=== PATIENT | male | born 1995 | race Caucasian/White ===

== ENCOUNTER 2019-03-26 23:04 | Emergency (ER) | payer OTHER ==
[2019-03-26 23:13] VITALS: RESP 18; TEMP 98.5
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
[2019-03-26] MEDS ORDERED: DIPH,PERTUS(ACELL)TETVAC-LF 0.5 ML VIAL IM ONE (23:34)
--- NOTE | 2019-03-26 23:56 | XR ---
EXAM: XR Right Forearm, 2 Views CLINICAL HISTORY: ITS.REASON XR Reason: Pain TECHNIQUE: Frontal and lateral views of the right forearm. COMPARISON: No relevant prior studies available. FINDINGS: Bones/joints: No acute fracture. No dislocation. Soft tissues: Unremarkable. IMPRESSION: No acute osseous findings.
[2019-03-27 00:21] VITALS: BP 123/79; PULSE 78
[2019-03-27] MEDS ORDERED: IBUPROFEN 600 MG TAB PO STA (00:24)
== END 2019-03-27 00:41 | disposition home or self-care (01) ==
LOC: EC 23:04
DX: S50.11XA Contusion of right forearm, initial encounter (principal); S40.212A Abrasion of left shoulder, initial encounter; F17.200 Nicotine dependence, unspecified, uncomplicated; Z91.030 Bee allergy status; Z23 Encounter for immunization; V68.5XXA Driver of heavy transport vehicle injured in noncollision transport accident in traffic accident, initial encounter; Y92.410 Unspecified street and highway as the place of occurrence of the external cause
CPT/HCPCS: 90471; 90715; 99284

== ENCOUNTER 2021-04-28 19:53 | Emergency (ER) | payer BC, OTHER ==
[2021-04-28 20:04] VITALS: BP 134/95; PULSE 96; RESP 20; TEMP 98.5
--- NOTE | 2021-04-28 21:32 | ED ---
General Adult HPI - General Chief complaint: Upper Respiratory Infection Stated complaint: Difficulty breathing Time Seen by Provider: 04/28/21 21:10 Source: patient, RN notes reviewed Mode of arrival: ambulatory Limitations: no limitations - History of Present Illness Initial comments: 26-year-old male presents to the emergency room for chief complaint of cough. Patient reports he has had a cough starting about 3 or 4 days ago. Patient also has congestion. Patient admits to chills but denies fevers. States he has been having body aches. Patient has also felt short of breath at work with this cough especially when starts having to do exertional activity such as shoveling. He has also had some nausea vomiting and diarrhea. Patient has no other complaints at this time including chest pain, abdominal pain, nausea or vomiting, headache, or visual changes. - Related Data Previous Rx's Medication Instructions Recorded Ibuprofen [Motrin] 600 mg PO Q8HR #30 tab 03/27/19 methocarbamoL [Robaxin] 500 mg PO QID #30 tab 03/27/19 Benzonatate [Tessalon Perles] 200 mg PO Q8H PRN #15 cap 04/28/21 guaiFENesin [Mucinex] 600 mg PO Q12HR PRN #20 tab 04/28/21 Allergies Allergy/AdvReac Type Severity Reaction Status Date / Time bee venom protein (honey bee) Allergy Anaphylaxis Verified 04/28/21 20:02 Review of Systems ROS Statement: Those systems with pertinent positive or pertinent negative responses have been documented in the HPI. ROS Other: All systems not noted in ROS Statement are negative. Past Medical History Past Medical History: No Reported History History of Any Multi-Drug Resistant Organisms: None Reported Past Surgical History: Appendectomy Past Psychological History: No Psychological Hx Reported Smoking Status: Current every day smoker Past Alcohol Use History: Occasional Past Drug Use History: Marijuana General Exam Limitations: no limitations General appearance: alert, in no apparent distress Head exam: Present: atraumatic Eye exam: Present: normal appearance, PERRL, EOMI. Absent: scleral icterus, conjunctival injection ENT exam: Present: normal exam, mucous membranes moist Neck exam: Present: normal inspection, full ROM. Absent: tenderness Respiratory exam: Present: normal lung sounds bilaterally. Absent: respiratory distress, wheezes Cardiovascular Exam: Present: regular rate, normal rhythm, normal heart sounds GI/Abdominal exam: Present: soft, normal bowel sounds. Absent: distended, tenderness Course Vital Signs 04/28/21 20:02 Temperature 98.5 F Pulse Rate 96 Respiratory 20 Rate Blood Pressure 134/95 O2 Sat by Pulse 95 Oximetry Medical Decision Making - Medical Decision Making Vitals are stable. Coronavirus negative. Chest x-ray shows no pneumonias. Patient likely has viral upper respiratory infection. He does not want further workup, wants to go home and sleep. At this time recommend patient take [id number] medications and follow-up with his doctor. He will return for any worsening symptoms. - Lab Data Lab Results 04/28/21 Range/Units 20:07 Coronavirus (PCR) Not Detected (Not Detectd) Disposition Clinical Impression: Cough, Sinus congestion Disposition: HOME SELF-CARE Condition: Good Instructions (If sedation given, give patient instructions): Upper Respiratory Infection (ED) Additional Instructions: Please take medications as directed. Follow-up with your doctor. Return to the emergency room for any worsening symptoms. Prescriptions: guaiFENesin [Mucinex] 600 mg PO Q12HR PRN #20 tab PRN Reason: Congestion Benzonatate [Tessalon Perles] 200 mg PO Q8H PRN #15 cap PRN Reason: Cough Is patient prescribed a controlled substance at d/c from ED?: No Referrals: Jose Parikh MD [REFERRING] - 1-2 days Time of Disposition: 22:00
--- NOTE | 2021-04-28 21:52 | XR ---
EXAMINATION TYPE: XR chest 2V DATE OF EXAM: 04/28/2021 COMPARISON: NONE HISTORY: Cough TECHNIQUE: FINDINGS: Heart and mediastinum are normal. Lungs are clear. Diaphragm is normal. Bony thorax appears normal. IMPRESSION: Normal chest.
== END 2021-04-28 22:11 | disposition home or self-care (01) ==
LOC: EC 19:53
DX: R05 Cough (principal); R09.81 Nasal congestion; R06.02 Shortness of breath; R19.7 Diarrhea, unspecified; R11.2 Nausea with vomiting, unspecified; R68.83 Chills (without fever); F17.200 Nicotine dependence, unspecified, uncomplicated; F12.90 Cannabis use, unspecified, uncomplicated; Z20.822 Contact with and (suspected) exposure to COVID-19; Z90.49 Acquired absence of other specified parts of digestive tract
CPT/HCPCS: 71046; 87635; 99284

== ENCOUNTER 2021-05-09 00:30 | Emergency (ER) | payer BC, OTHER ==
[2021-05-09] MEDS ORDERED: predniSONE 50 MG TAB PO STA (01:07)
[2021-05-09] MEDS ORDERED: guaiFENesin-DM 600/30MG 1 EACH TAB.ER.12H PO STA (01:07)
--- NOTE | 2021-05-09 01:11 | ED ---
URI HPI - General Chief Complaint: Upper Respiratory Infection Stated Complaint: URI Time Seen by Provider: 05/09/21 00:37 Source: patient Mode of arrival: ambulatory Limitations: no limitations - History of Present Illness Initial Comments: 26 year-old male patient presents for evaluation of cough, chest pain, shortness of breath. States symptoms started two weeks ago and have not gotten better despite prescription cough medications. Patient states that he has felt hot and cold flashes. Has not checked his temperature. States he gets winded with act ivity. Reports yellow sputum production. Reports several episodes of post- tussive vomiting. Previously tested negative for COVID. Diagnosed with viral upper respiratory infection. Denies any diarrhea. Has not had covid vaccine nor previous covid infection. Admits to smoking cigarettes. - Related Data Previous Rx's Medication Instructions Recorded Ibuprofen [Motrin] 600 mg PO Q8HR #30 tab 03/27/19 methocarbamoL [Robaxin] 500 mg PO QID #30 tab 03/27/19 Benzonatate [Tessalon Perles] 200 mg PO Q8H PRN #15 cap 04/28/21 guaiFENesin [Mucinex] 600 mg PO Q12HR PRN #20 tab 04/28/21 Albuterol Sulfate [Proair Hfa] 1 - 2 puff INHALATION Q6HR PRN 05/09/21 #8.5 gm Azithromycin [Zithromax Z-pack (6 0 mg PO DIRECTED #6 tab 05/09/21 tabs)] predniSONE 50 mg PO DAILY #5 tablet 05/09/21 Allergies Allergy/AdvReac Type Severity Reaction Status Date / Time bee venom protein (honey bee) Allergy Anaphylaxis Verified 05/09/21 00:37 Review of Systems ROS Statement: Those systems with pertinent positive or pertinent negative responses have been documented in the HPI. ROS Other: All systems not noted in ROS Statement are negative. Past Medical History Past Medical History: No Reported History History of Any Multi-Drug Resistant Organisms: None Reported Past Surgical History: Appendectomy Additional Past Surgical History / Comment(s): cyst removed from right thumb Past Psychological History: No Psychological Hx Reported Smoking Status: Current every day smoker Past Alcohol Use History: Occasional Past Drug Use History: Marijuana General Exam Limitations: no limitations General appearance: alert, in no apparent distress, other (This is a well- developed, well-nourished adult male patient in no acute distress. Vital signs upon presentation temperature 97.7F, pulse 95, respirations 26, pulse ox percent on room air, blood pressure 139/91) ENT exam: Present: normal exam, normal oropharynx, mucous membranes moist, TM's normal bilaterally Respiratory exam: Present: normal lung sounds bilaterally. Absent: respiratory distress, wheezes, rales, rhonchi, stridor, accessory muscle use Cardiovascular Exam: Present: regular rate, normal rhythm, normal heart sounds. Absent: systolic murmur, diastolic murmur, rubs, gallop, clicks GI/Abdominal exam: Present: soft, normal bowel sounds. Absent: distended, tenderness, guarding, rebound, rigid Neurological exam: Present: alert, oriented X3, CN II-XII intact Psychiatric exam: Present: normal affect, normal mood Skin exam: Present: warm, dry, intact, normal color. Absent: rash Course Vital Signs 05/09/21 05/09/21 00:31 01:24 Temperature 97.7 F 97.5 F L Pulse Rate 95 77 Respiratory 26 H 18 Rate Blood Pressure 139/91 130/87 O2 Sat by Pulse 99 99 Oximetry Medical Decision Making - Medical Decision Making 26 year-old male patient presented to the ED for persistent cough and congestion. Physical exam revealed clear equal lung sounds. He is afebrile. Normal vital signs. Chest xray negative. COVID negative. Symptoms are consistent with acute bronchitis. He will be given a z-alvarez and steroids. He is instructed to follow-up with his primary care physician for recheck in 1-2 days. Return parameters discussed in detail. He verbalizes understanding and agrees with this plan. My attending is Dr. Phillips. - Lab Data Lab Results 05/09/21 Range/Units 01:20 Coronavirus (PCR) Not Detected (Not Detectd) - Radiology Data Radiology results: report reviewed, image reviewed 2 views of the chest are obtained. Report is reviewed and entirety. Impression by Dr. James shows normal chest. No change. Disposition Clinical Impression: Acute bronchitis Disposition: HOME SELF-CARE Condition: Good Instructions (If sedation given, give patient instructions): Acute Bronchitis (ED) Additional Instructions: Take medication as directed. Complete antibiotic prescription in full. Follow- up with the primary care physician for recheck in 1-2 days. Return for any new, worsening, or concerning symptoms. Prescriptions: predniSONE 50 mg PO DAILY #5 tablet Albuterol Sulfate [Proair Hfa] 1 - 2 puff INHALATION Q6HR PRN #8.5 gm PRN Reason: Shortness Of Breath Azithromycin [Zithromax Z-pack (6 tabs)] 0 mg PO DIRECTED #6 tab Is patient prescribed a controlled substance at d/c from ED?: No Referrals: None,Stated [Primary Care Provider] - 1-2 days Time of Disposition: 02:07
--- NOTE | 2021-05-09 01:31 | XR ---
EXAMINATION TYPE: XR chest 2V DATE OF EXAM: 05/09/2021 COMPARISON: 04/28/2021 HISTORY: Cough TECHNIQUE: 2 views FINDINGS: Heart and mediastinum are normal. Lungs are clear. Diaphragm is normal. Bony thorax appears normal. IMPRESSION: Normal chest. No change.
[2021-05-09 02:36] VITALS: BP 136/76; PULSE 82; RESP 16; TEMP 97.7
== END 2021-05-09 02:36 | disposition home or self-care (01) ==
LOC: EC 00:30
DX: J20.9 Acute bronchitis, unspecified (principal); F17.210 Nicotine dependence, cigarettes, uncomplicated; F12.90 Cannabis use, unspecified, uncomplicated; Z20.822 Contact with and (suspected) exposure to COVID-19; Z79.1 Long term (current) use of non-steroidal anti-inflammatories (NSAID); Z79.899 Other long term (current) drug therapy; Z90.49 Acquired absence of other specified parts of digestive tract
CPT/HCPCS: 99285 ×2; 87635; 71046; J7512

== ENCOUNTER 2021-05-17 11:06 | Emergency (ER) | payer BC, OTHER ==
--- NOTE | 2021-05-17 11:32 | ED ---
URI HPI - General Chief Complaint: Upper Respiratory Infection Stated Complaint: Sore throat Revisit Time Seen by Provider: 05/17/21 11:22 Source: patient, RN notes reviewed Mode of arrival: ambulatory Limitations: no limitations - History of Present Illness Initial Comments: is a 26-year-old male presented to the ER for upper respiratory symptoms. Lillie ent states they're here 2 weeks ago and were diagnosed with upper respiratory infection symptoms home on antibiotics and steroids. Patient states that once finished a course 2 days ago symptoms came back up with increased shortness of breath with activity. Patient reports generalized weakness and fatigue, with 3 episodes of nausea and vomiting. Patient states that oral intake, bowel movements, urination has not changed in reported to be normal. Patient denies any fevers. - Related Data Previous Rx's Medication Instructions Recorded Ibuprofen [Motrin] 600 mg PO Q8HR #30 tab 03/27/19 methocarbamoL [Robaxin] 500 mg PO QID #30 tab 03/27/19 Benzonatate [Tessalon Perles] 200 mg PO Q8H PRN #15 cap 04/28/21 guaiFENesin [Mucinex] 600 mg PO Q12HR PRN #20 tab 04/28/21 Albuterol Sulfate [Proair Hfa] 1 - 2 puff INHALATION Q6HR PRN 05/09/21 #8.5 gm Azithromycin [Zithromax Z-pack (6 0 mg PO DIRECTED #6 tab 05/09/21 tabs)] predniSONE 50 mg PO DAILY #5 tablet 05/09/21 Allergies Allergy/AdvReac Type Severity Reaction Status Date / Time bee venom protein (honey bee) Allergy Anaphylaxis Verified 05/17/21 11:21 Review of Systems ROS Statement: Those systems with pertinent positive or pertinent negative responses have been documented in the HPI. ROS Other: All systems not noted in ROS Statement are negative. Past Medical History Past Medical History: No Reported History History of Any Multi-Drug Resistant Organisms: None Reported Past Surgical History: Appendectomy Additional Past Surgical History / Comment(s): cyst removed from right thumb Past Psychological History: No Psychological Hx Reported Smoking Status: Current every day smoker Past Alcohol Use History: Occasional Past Drug Use History: Marijuana General Exam Limitations: no limitations General appearance: alert, in no apparent distress ENT exam: Present: normal exam, mucous membranes moist Respiratory exam: Present: normal lung sounds bilaterally. Absent: respiratory distress, wheezes, rales, rhonchi, stridor Cardiovascular Exam: Present: regular rate, normal rhythm, normal heart sounds. Absent: systolic murmur, diastolic murmur, rubs, gallop, clicks Neurological exam: Present: alert, oriented X3 Psychiatric exam: Present: anxious (fast rate of speech) Skin exam: Present: warm, dry, intact, normal color. Absent: rash Course Vital Signs 05/17/21 05/17/21 11:18 11:39 Temperature 97.2 F L Pulse Rate 87 Respiratory 18 16 Rate Blood Pressure 128/71 O2 Sat by Pulse 98 Oximetry Medical Decision Making - Medical Decision Making X-rays unremarkable COVID-19 is negative. Patient has a cough with no obvious external signs is recently treated for discharge in stable condition.I counseled the patient for smoking cessation for greater than 3 minutes - Lab Data Lab Results 05/17/21 Range/Units 11:36 Coronavirus (PCR) Not Detected (Not Detectd) Disposition Clinical Impression: Cough, Acute upper respiratory infection Disposition: HOME SELF-CARE Condition: Stable Instructions (If sedation given, give patient instructions): Upper Respiratory Infection (ED) Additional Instructions: Please return to the Emergency Department if symptoms worsen or any other concerns. Is patient prescribed a controlled substance at d/c from ED?: No Referrals: None,Stated [Primary Care Provider] - 1-2 days Time of Disposition: 12:56
--- NOTE | 2021-05-17 11:51 | XR ---
EXAMINATION TYPE: XR chest 2V DATE OF EXAM: 05/17/2021 COMPARISON: 05/09/2021 TECHNIQUE: PA and lateral views submitted. HISTORY: Shortness of breath FINDINGS: The lungs are clear and there is no pneumothorax, pleural effusion, or focal pneumonia. Hyperexpans ion of the lungs. No overt failure. Heart size normal. IMPRESSION: 1. No acute process. Correlate for COPD.
[2021-05-17 13:35] VITALS: BP 133/70; PULSE 98; RESP 18; TEMP 97.1
== END 2021-05-17 13:33 | disposition home or self-care (01) ==
LOC: EC 11:06
DX: J06.9 Acute upper respiratory infection, unspecified (principal); F17.200 Nicotine dependence, unspecified, uncomplicated; F12.90 Cannabis use, unspecified, uncomplicated; Z72.89 Other problems related to lifestyle
CPT/HCPCS: 71046; 87635; 99285

== ENCOUNTER 2022-02-17 23:23 | Emergency (ER) | payer BC, OTHER ==
[2022-02-17 23:32] VITALS: TEMP 98.2
--- NOTE | 2022-02-17 23:35 | ED ---
General Adult HPI - General Chief complaint: Syncope Stated complaint: Near syncope Time Seen by Provider: 02/17/22 23:25 Source: patient, EMS, RN notes reviewed Mode of arrival: EMS Limitations: no limitations - History of Present Illness Initial comments: 26-year-old male who is 15 days into treatment and alcohol treatment program who was passing out snacks to other patients when he felt very shaky he apparently get pale and diaphoretic. Per report he appeared as if he was almost going to pass out. Interval episode last about 20 minutes he states. He now feels back to normal he was brought in by EMS for evaluation. He has no known cardiac di sease he does have a long history of alcohol abuse. No known heart disease no lung disease though he is a smoker. No other current complaints or modifying factors he denies any palpitations any weakness in his arms or legs any focal deficits. The patient states that he fell 2 days ago when he was leaning on a chair and sustained bruising to his chest wall and scalp he was evaluated at another facility at that time and discharged. No other current complaints or modifying factors - Related Data Previous Rx's Medication Instructions Recorded Ibuprofen [Motrin] 600 mg PO Q8HR #30 tab 03/27/19 methocarbamoL [Robaxin] 500 mg PO QID #30 tab 03/27/19 Benzonatate [Tessalon Perles] 200 mg PO Q8H PRN #15 cap 04/28/21 guaiFENesin [Mucinex] 600 mg PO Q12HR PRN #20 tab 04/28/21 Albuterol Sulfate [Proair Hfa] 1 - 2 puff INHALATION Q6HR PRN 05/09/21 #8.5 gm Azithromycin [Zithromax Z-pack (6 0 mg PO DIRECTED #6 tab 05/09/21 tabs)] predniSONE 50 mg PO DAILY #5 tablet 05/09/21 Allergies Allergy/AdvReac Type Severity Reaction Status Date / Time bee venom protein (honey bee) Allergy Anaphylaxis Verified 05/17/21 11:21 Review of Systems ROS Statement: Those systems with pertinent positive or pertinent negative responses have been documented in the HPI. ROS Other: All systems not noted in ROS Statement are negative. Past Medical History Past Medical History: No Reported History History of Any Multi-Drug Resistant Organisms: None Reported Past Surgical History: Appendectomy Additional Past Surgical History / Comment(s): cyst removed from right thumb Past Psychological History: No Psychological Hx Reported Smoking Status: Current every day smoker Past Alcohol Use History: Occasional Past Drug Use History: Marijuana General Exam - General Exam Comments Initial Comments: This is a well-developed well-nourished awake alert oriented 4 male Limitations: no limitations General appearance: alert, in no apparent distress Head exam: Present: atraumatic, normocephalic, normal inspection Eye exam: Present: normal appearance, PERRL, EOMI. Absent: scleral icterus, conjunctival injection, periorbital swelling ENT exam: Present: normal exam, mucous membranes moist Neck exam: Present: normal inspection, full ROM, other (Historybruits). Absent: tenderness, meningismus, lymphadenopathy Respiratory exam: Present: normal lung sounds bilaterally. Absent: respiratory distress, wheezes, rales, rhonchi, stridor Cardiovascular Exam: Present: regular rate, normal rhythm, normal heart sounds. Absent: systolic murmur, diastolic murmur, rubs, gallop, clicks GI/Abdominal exam: Present: soft, normal bowel sounds. Absent: distended, tenderness, guarding, rebound, rigid, bruit, pulsatile mass Extremities exam: Present: normal inspection, full ROM, normal capillary refill. Absent: tenderness, pedal edema, joint swelling, calf tenderness Back exam: Present: normal inspection Neurological exam: Present: alert, oriented X3, CN II-XII intact Psychiatric exam: Present: normal affect, normal mood Skin exam: Present: warm, dry, intact, normal color. Absent: rash Course Vital Signs 02/17/22 23:28 Temperature 98.2 F Pulse Rate 74 Respiratory 16 Rate Blood Pressure 122/72 O2 Sat by Pulse 100 Oximetry EKG Findings - EKG Results: EKG: interpreted by LIO, sinus rhythm (Sinus rhythm rate 67 [place] interval 134 QRS duration 94 QT since QTC/423 possible right ventricular conduction delay) Medical Decision Making - Medical Decision Making Patient is awake alert oriented 4 no distress has no further symptoms since arrival. The presentation appears be consistent with a vasovagal episode he also does demonstrate some evidence of mild dehydration. We did discuss this. He will be discharged back to [facility] for continuation of his treatment program. - Lab Data Result diagrams: 02/17/22 23:42 02/17/22 23:42 Lab Results 02/17/22 02/17/2202/17/22 Range/Units 23:42 23:42 23:42 WBC 6.7 (3.8-10.6) k/uL RBC 3.66 L (4.30-5.90) m/uL Hgb 13.2 (13.0-17.5) gm/dL Hct 40.7 (39.0-53.0) % MCV 111.0 H (80.0-100.0) fL MCH 36.0 H (25.0-35.0) pg MCHC 32.4 (31.0-37.0) g/dL RDW 12.7 (11.5-15.5) % Plt Count 439 (150-450) k/uL MPV 6.7 Macrocytosis Marked A D-Dimer 0.24 (<0.60) mg/L FEU Sodium 136 L (137-145) mmol/L Potassium 3.9 (3.5-5.1) mmol/L Chloride 104 (98-107) mmol/L Carbon Dioxide 25 (22-30) mmol/L Anion Gap 7 mmol/L BUN 11 (9-20) mg/dL Creatinine 0.53 L (0.66-1.25) mg/dL Est GFR (CKD-EPI)AfAm >90 (>60 ml/min/1.73 sqM) Est GFR (CKD-EPI)NonAf >90 (>60 ml/min/1.73 sqM) Glucose 104 H (74-99) mg/dL Calcium 9.5 (8.4-10.2) mg/dL Magnesium 1.9 (1.6-2.3) mg/dL Total Bilirubin 0.2 (0.2-1.3) mg/dL AST 30 (17-59) U/L ALT 28 (4-49) U/L Alkaline Phosphatase 73 (38-126) U/L Creatine Kinase 171 H (55-170) U/L Troponin I (0.000-0.034) ng/mL Total Protein 6.5 (6.3-8.2) g/dL Albumin 4.2 (3.5-5.0) g/dL Lipase 539 H (23-300) U/L 02/17/22 Range/Units 23:42 WBC (3.8-10.6) k/uL RBC (4.30-5.90) m/uL Hgb (13.0-17.5) gm/dL Hct (39.0-53.0) % MCV (80.0-100.0) fL MCH (25.0-35.0) pg MCHC (31.0-37.0) g/dL RDW (11.5-15.5) % Plt Count (150-450) k/uL MPV Macrocytosis D-Dimer (<0.60) mg/L FEU Sodium (137-145) mmol/L Potassium (3.5-5.1) mmol/L Chloride (98-107) mmol/L Carbon Dioxide (22-30) mmol/L Anion Gap mmol/L BUN (9-20) mg/dL Creatinine (0.66-1.25) mg/dL Est GFR (CKD-EPI)AfAm (>60 ml/min/1.73 sqM) Est GFR (CKD-EPI)NonAf (>60 ml/min/1.73 sqM) Glucose (74-99) mg/dL Calcium (8.4-10.2) mg/dL Magnesium (1.6-2.3) mg/dL Total Bilirubin (0.2-1.3) mg/dL AST (17-59) U/L ALT (4-49) U/L Alkaline Phosphatase (38-126) U/L Creatine Kinase (55-170) U/L Troponin I <0.012 (0.000-0.034) ng/mL Total Protein (6.3-8.2) g/dL Albumin (3.5-5.0) g/dL Lipase (23-300) U/L Disposition Clinical Impression: Vasovagal episode, Dehydration Disposition: HOME SELF-CARE Condition: Good Instructions (If sedation given, give patient instructions): Near Syncope (ED), Dehydration (ED) Is patient prescribed a controlled substance at d/c from ED?: No Referrals: None,Stated [Primary Care Provider] - 1-2 days Decision Date: 02/18/22 Decision Time: 00:34
[2022-02-17 23:49] LABS: Basophils # (A) 0.1 k/uL (0-0.2); Basophils % (A) 2 %; Eosinophils # (A) 0.4 k/uL (0-0.7); Eosinophils % (A) 6 %; HCT 40.7 % (39.0-53.0); HGB 13.2 gm/dL (13.0-17.5); Lymphocytes # (A) 2.1 k/uL (1.0-4.8); Lymphocytes % (A) 32 %; MCHC 32.4 g/dL (31.0-37.0); Macrocytosis Marked; Mean Platelet Volume 6.7; Monocytes # (A) 0.3 k/uL (0-1.0); Monocytes % (A) 5 %; Neutrophils # (A) 3.5 k/uL (1.3-7.7); Neutrophils % (A) 53 %; Platelet Count 439 k/uL (150-450); RBC 3.66 m/uL (4.30-5.90); RDW 12.7 % (11.5-15.5); WBC 6.7 k/uL (3.8-10.6)
[2022-02-17 23:59] LABS: ALT 28 U/L (4-49); AST 30 U/L (17-59); African American GFR (CKD) >90 (>60 ml/min/1.73 sqM); Albumin 4.2 g/dL (3.5-5.0); Alkaline Phosphatase 73 U/L (38-126); Anion Gap 7 mmol/L; Blood Urea Nitrogen 11 mg/dL (9-20); Calcium 9.5 mg/dL (8.4-10.2); Carbon Dioxide 25 mmol/L (22-30); Chloride 104 mmol/L (98-107); Creatine Kinase 171 U/L (55-170); Glucose 104 mg/dL (74-99); Lipase 539 U/L (23-300); Magnesium 1.9 mg/dL (1.6-2.3); Non-African American GFR(CKD) >90 (>60 ml/min/1.73 sqM); Potassium 3.9 mmol/L (3.5-5.1); Sodium 136 mmol/L (137-145); Total Bilirubin 0.2 mg/dL (0.2-1.3); Total Protein 6.5 g/dL (6.3-8.2)
[2022-02-18 01:09] VITALS: BP 108/69; PULSE 67; RESP 18
== END 2022-02-18 01:09 | disposition home or self-care (01) ==
LOC: EC 23:23
DX: E86.0 Dehydration (principal); F17.200 Nicotine dependence, unspecified, uncomplicated
CPT/HCPCS: 36415; 80053; 82550; 83690; 83735; 84484; 85025; 85379; 93005; 99285